=== PATIENT | male | born 1955 | race Caucasian/White ===

== ENCOUNTER 2017-07-15 10:18 | Emergency (ER) | payer MEDICARE ==
[~2017-07-15 10:18] MED LIST: ALPR2TAB7 PO; AMLO5TAB2 PO; CARV25TA PO; OMEP20CA10 PO; TRAM50TA4 PO; TRAZ-187 PO; VENL75TA63 PO; WARF10TA23 PO
[2017-07-15 10:37] LABS: BASOPHILS % (AUTO) 0.4 % (0.0-5.0); EOSINOPHILS % (AUTO) 0.4 % (0.0-8.0); HEMATOCRIT 42.8 % (42-54); LYMPHOCYTES % (AUTO) 11.8 % (21.0-51.0); MEAN CORPUSCULAR HEMOGLOBIN 31.8 pg (27.0-33.0); MEAN CORPUSCULAR HGB CONC 35.4 g/dL (32.0-36.0); MONOCYTES % (AUTO) 8.5 % (3.0-13.0); NEUTROPHILS % (AUTO) 78.9 % (40.0-77.0); NUCLEATED RED BLOOD CELLS 0.1 % (0.0-0.19); PLATELET COUNT (AUTO) 205 K/uL (130-400); RED BLOOD CELL COUNT(AUTO) 4.76 MIL/uL (4.50-6.20); RED CELL DISTRIBUTION WIDTH 15.6 % (11.0-15.5); WHITE BLOOD COUNT (AUTO) 8.1 K/uL (4.8-10.8)
[2017-07-15 10:55] LABS: ALBUMIN 4.3 g/dL (3.5-5.0); BILIRUBIN,TOTAL 0.9 mg/dL (0.2-1.0); CREATININE 1.2 mg/dL (0.5-1.5); TOTAL PROTEIN, SERUM 8.4 g/dL (6.0-8.3)
[2017-07-15 10:57] LABS: POTASSIUM 2.9 mmol/L (3.5-5.1)
[2017-07-15 10:58] LABS: INR 2.23 (0.85-1.15); PARTIAL THROMBOPLASTIN TIME 37.6 SEC (26.3-35.5); PROTHROMBIN TIME 23.1 SEC (9.6-11.6)
[2017-07-15 12:14] LABS: APPEARANCE,URINE Clear (CLEAR); BILIRUBIN,URINE Negative (NEGATIVE); COLOR,URINE Yellow (YELLOW); GLUCOSE, URINE (UA) Negative (NEGATIVE); KETONES,URINE Trace mg/dL (NEGATIVE); LEUKOCYTE ESTERASE ,URINE Negative (NEGATIVE); NITRATE,URINE Negative (NEGATIVE); OCCULT BLOOD,URINE Negative (NEGATIVE); PH,URINE 7.5 (5.0-8.0); PROTEIN,URINE Negative (NEGATIVE)
[2017-07-15 12:19] LABS: BACTERIA,URINE Rare /HPF (None Seen); RBC,URINE 0-1 /HPF (0-1); SQUAMOUS EPITHELIAL CELL,UR Rare /HPF (0-2); WBC,URINE 0-1 /HPF (0-1)
[2017-07-15] MEDS ORDERED: POTASSIUM BICARB/CIT AC 25 MEQ TABLET.EFF ONE (12:30)
[2017-07-15] MEDS ORDERED: LORAZEPAM 1 MG TABLET ONE (12:48)
== END 2017-07-15 13:37 | disposition home or self-care (01) ==
LOC: EDH 10:18
DX: E87.6 Hypokalemia (principal); R42 Dizziness and giddiness; F13.239 Sedative, hypnotic or anxiolytic dependence with withdrawal, unspecified; G62.9 Polyneuropathy, unspecified; I38 Endocarditis, valve unspecified; F41.9 Anxiety disorder, unspecified; R79.1 Abnormal coagulation profile
CPT/HCPCS: 36415; 70450; 72125; 80053; 81001; 84484; 85025; 85610; 85730; 93005

== ENCOUNTER → 2018-02-11 | Outpatient (CLI) | payer MEDICARE ==
[~2018-02-11] MED LIST changes: -AMLO5TAB2 PO; +AMLO5TAB7 PO
== END | disposition home or self-care (01) ==
LOC: SHCH 15:39
PROVIDERS: ATTEND Internal Medicine Cardiovascular Disease
DX: R00.2 Palpitations (principal); Z95.3 Presence of xenogenic heart valve
CPT/HCPCS: 93306

== ENCOUNTER 2019-03-29 14:46 | Emergency (ER) | payer MEDICARE ==
[~2019-03-29 14:46] MED LIST changes: -AMLO5TAB7 PO; +AMLO5TAB9 PO; -OMEP20CA10 PO; +OMEP20CA12 PO; +VENL-61 PO; -VENL75TA63 PO
[2019-03-29] MEDS ORDERED: TETANUS/DIPHTHERIA TOXOID [ADULT] 0.5 ML VIAL IM ONE (15:14)
[2019-03-29] MEDS ORDERED: LIDOCAINE HCL 1% 20 ML VIAL ONE (15:14)
[2019-03-29 16:29] LABS: BASOPHILS % (AUTO) 0.5 % (0.0-5.0); EOSINOPHILS % (AUTO) 2.2 % (0.0-8.0); HEMATOCRIT 42.3 % (42-54); LYMPHOCYTES % (AUTO) 22.4 % (21.0-51.0); MEAN CORPUSCULAR HEMOGLOBIN 30.4 pg (27.0-33.0); MEAN CORPUSCULAR HGB CONC 32.9 g/dL (32.0-36.0); MEAN CORPUSCULAR VOLUME 92.6 fL (79-99); MONOCYTES % (AUTO) 11.7 % (3.0-13.0); PLATELET COUNT (AUTO) 157 K/uL (130-400); RED BLOOD CELL COUNT(AUTO) 4.57 MIL/uL (4.50-6.20); RED CELL DISTRIBUTION WIDTH 14.3 % (11.0-15.5); WHITE BLOOD COUNT (AUTO) 4.1 K/uL (4.8-10.8)
[2019-03-29 16:39] LABS: INR 2.86 (0.85-1.15); PROTHROMBIN TIME 28.8 SEC (9.6-11.6)
[2019-03-29 16:41] LABS: CREATININE 1.1 mg/dL (0.5-1.5)
[2019-03-29 16:46] LABS: ALBUMIN 3.5 g/dL (3.5-5.0); BILIRUBIN,TOTAL 0.5 mg/dL (0.2-1.0); TOTAL PROTEIN, SERUM 7.1 g/dL (6.0-8.3)
== END 2019-03-29 17:06 | disposition home or self-care (01) ==
LOC: EDH 14:46
DX: S51.812A Laceration without foreign body of left forearm, initial encounter (principal); I38 Endocarditis, valve unspecified; I10 Essential (primary) hypertension; F41.9 Anxiety disorder, unspecified; F32.9 Major depressive disorder, single episode, unspecified; Z90.49 Acquired absence of other specified parts of digestive tract; Z95.2 Presence of prosthetic heart valve; W26.0XXA Contact with knife, initial encounter; Y93.89 Activity, other specified; Y92.098 Other place in other non-institutional residence as the place of occurrence of the external cause; Y99.8 Other external cause status
CPT/HCPCS: 12032; 12042; 36415; 73090; 80053; 85025; 85610; 85730; 90471; 90714